=== PATIENT | male | born 1975 | race Caucasian/White ===

== ENCOUNTER 2022-11-10 23:38 | Inpatient (IN) | payer OTHER ==
[2022-11-11 00:05] VITALS: BMI 29.0
[2022-11-11] MEDS ORDERED: IBUPROFEN 400 MG TABLET (FP) PO PRN (00:33)
[2022-11-11] MEDS ORDERED: DICYCLOMINE HCL 10 MG CAPSULE PO PRN (00:33)
[2022-11-11] MEDS ORDERED: POLYETHYLENE GLYCOL (HEALTHYLAX) 3350 17 GM PACKET PO PRN (00:33)
[2022-11-11] MEDS ORDERED: ACETAMINOPHEN 325 MG TABLET (FP) PO PRN ×2 (00:33)
[2022-11-11] MEDS ORDERED: NALOXONE HCL (KLOXXADO) 8 MG SPRAY NS PRN (00:33)
[2022-11-11] MEDS ORDERED: BENZONATATE 200 MG CAPSULE PO PRN (00:33)
[2022-11-11] MEDS ORDERED: P-EPHED 60MG/TRIPROLIDI 2.5MG TABLET PO PRN (00:33)
[2022-11-11] MEDS ORDERED: NALOXONE HCL 0.4 MG/ML VIAL IM PRN (00:33)
[2022-11-11] MEDS ORDERED: ONDANSETRON *ODT* 4 MG TABLET SL PRN (00:33)
[2022-11-11] MEDS ORDERED: MAGNESIUM HYDROX 2400MG/30ML ORAL SUSPENSION 30 ML CUP PO PRN (00:33)
[2022-11-11] MEDS ORDERED: BENZOCAINE/MENTHOL (CHLORASEPTIC ) LOZENGE MM PRN (00:33)
[2022-11-11] MEDS ORDERED: LOPERAMIDE HCL 2 MG CAPSULE PO PRN (00:33)
[2022-11-11] MEDS ORDERED: MAG HYDROX/AL HYDROX/SIMETH 30 ML UNIT-DOSE CUP PO PRN (00:33)
[2022-11-11] MEDS ORDERED: NICOTINE POLACRILEX 2 MG GUM BUC PRN (00:33)
[2022-11-11] MEDS ORDERED: BISMUTH SUBSALICYLATE 524 MG/30 ML PO PRN (00:33)
[2022-11-11] MEDS ORDERED: guaiFENesin 600 MG TABLET.ER (FP) PO PRN (00:33)
[2022-11-11] MEDS: hydrOXYzine PAMOATE 25 MG CAPSULE (FP) PO PRN ×2 (02:46→15:00)
[2022-11-11] MEDS: IBUPROFEN 600 MG TABLET (FP) PO PRN (05:32)
[2022-11-11] MEDS: PRENATAL VITAMINS W/ FOLIC ACID TABLET (FP) PO SCH (10:33)
[2022-11-11] MEDS: cloNIDine HCL 0.1 MG TABLET PO PRN (15:02)
[2022-11-11] MEDS ORDERED: methaDONE HCL 10 MG TABLET (FOR DETOX USE ONLY) PO ONE (19:30)
[2022-11-11] MEDS: THIAMINE HCL 100 MG TABLET (FP) PO SCH (22:02)
[2022-11-11] MEDS: MELATONIN 5 MG TABLETS PO SCH (22:02)
[2022-11-12] MEDS: hydrOXYzine PAMOATE 25 MG CAPSULE (FP) PO PRN ×2 (01:44→23:22)
[2022-11-12] MEDS: PRENATAL VITAMINS W/ FOLIC ACID TABLET (FP) PO SCH (10:10)
[2022-11-12] MEDS: MELATONIN 5 MG TABLETS PO SCH ×2 (23:13→23:18)
[2022-11-12] MEDS: THIAMINE HCL 100 MG TABLET (FP) PO SCH ×2 (23:14→23:20)
[2022-11-12] MEDS: cloNIDine HCL 0.1 MG TABLET PO PRN (23:22)
[2022-11-12] MEDS: IBUPROFEN 600 MG TABLET (FP) PO PRN (23:22)
[2022-11-13] MEDS ORDERED: methaDONE HCL 10 MG TABLET (FOR DETOX USE ONLY) PO ONE (10:00)
[2022-11-13] MEDS: PRENATAL VITAMINS W/ FOLIC ACID TABLET (FP) PO SCH (10:37)
[2022-11-13] MEDS ORDERED: methaDONE HCL 10 MG TABLET PO ONE (18:50)
[2022-11-13] MEDS: THIAMINE HCL 100 MG TABLET (FP) PO SCH (22:33)
[2022-11-13] MEDS: hydrOXYzine PAMOATE 25 MG CAPSULE (FP) PO PRN (22:33)
[2022-11-13] MEDS: cloNIDine HCL 0.1 MG TABLET PO PRN (22:33)
[2022-11-13] MEDS: MELATONIN 5 MG TABLETS PO SCH (22:33)
[2022-11-14] MEDS: hydrOXYzine PAMOATE 25 MG CAPSULE (FP) PO PRN ×2 (10:39→22:24)
[2022-11-14] MEDS: cloNIDine HCL 0.1 MG TABLET PO PRN ×2 (10:39→22:25)
[2022-11-14] MEDS: PRENATAL VITAMINS W/ FOLIC ACID TABLET (FP) PO SCH (10:40)
[2022-11-14] MEDS: MELATONIN 5 MG TABLETS PO SCH (22:23)
[2022-11-14] MEDS: THIAMINE HCL 100 MG TABLET (FP) PO SCH (22:24)
[2022-11-15] MEDS ORDERED: methaDONE HCL 10 MG TABLET (FOR DETOX USE ONLY) PO ONE (10:00)
[2022-11-15] MEDS: hydrOXYzine PAMOATE 25 MG CAPSULE (FP) PO PRN ×2 (10:20→22:26)
[2022-11-15] MEDS: PRENATAL VITAMINS W/ FOLIC ACID TABLET (FP) PO SCH (10:20)
[2022-11-15 17:24] VITALS: RESP 18
[2022-11-15] MEDS: THIAMINE HCL 100 MG TABLET (FP) PO SCH (22:25)
[2022-11-15] MEDS: MELATONIN 5 MG TABLETS PO SCH (22:26)
[2022-11-16] MEDS: IBUPROFEN 600 MG TABLET (FP) PO PRN (05:41)
[2022-11-16] MEDS: hydrOXYzine PAMOATE 25 MG CAPSULE (FP) PO PRN (09:01)
[2022-11-16] MEDS: PRENATAL VITAMINS W/ FOLIC ACID TABLET (FP) PO SCH (09:01)
[2022-11-16 09:24] VITALS: BP 144/81; PULSE 90; TEMP 98.1
== END 2022-11-16 11:23 | disposition other institution (70) | DRG 773 ==
LOC: YASAS 23:38 → Y6N 11-11 01:49
PROVIDERS: ADMIT Allergy & Immunology; ATTEND Surgery
PROC: HZ2ZZZZ Detoxification Services for Substance Abuse Treatment (ICD-10-PCS; principal; 2022-11-11)
DX: F11.23 Opioid dependence with withdrawal (principal); F14.20 Cocaine dependence, uncomplicated; F12.20 Cannabis dependence, uncomplicated; F17.210 Nicotine dependence, cigarettes, uncomplicated; F19.24 Other psychoactive substance dependence with psychoactive substance-induced mood disorder; Z28.310 Unvaccinated for COVID-19; Z28.9 Immunization not carried out for unspecified reason
CPT/HCPCS: 71045-TC-FY; C9803-CS; U0003; U0005